=== PATIENT | male | born 1955 | race Two or more races ===

== ENCOUNTER 2023-02-15 06:51 | Outpatient (CLI) | payer OTHER | END 2023-02-15 06:56 | disposition home or self-care (01) | LOC: SONOGRAMA 06:51 | PROVIDERS: ATTEND Psychiatry & Neurology Child & Adolescent Psychiatry | DX: R74.01 Elevation of levels of liver transaminase levels (principal) ==

== ENCOUNTER 2023-04-06 06:57 | Outpatient (CLI) | payer OTHER | END 2023-04-06 06:59 | disposition home or self-care (01) | LOC: NUCLEAR 06:57 | DX: C25.9 Malignant neoplasm of pancreas, unspecified (principal) | CPT/HCPCS: 78815; A9552 ==

== ENCOUNTER 2023-04-13 13:48 | Outpatient (CLI) | payer OTHER ==
[2023-04-13 15:17] LABS: HEMATOCRIT 35.1 % (39.0-48.0); HEMOGLOBIN 11.9 g/dL (13-16.00); MEAN CORPUSCULAR HEMOGLOBIN 31.1 pg (27.00-32.0); MEAN CORPUSCULAR HGB CONC 33.8 g/dl (32.0-36.0); PLATELET COUNT 281 K/uL (150-450); RED BLOOD COUNT 3.81 M/uL (4.00-6.00); RED CELL DISTRIBUTION WIDTH 17.7 % (11.5-14.5)
[2023-04-13 15:41] LABS: ALBUMIN 3.6 gm/dL (3.4-5.0); BILIRUBIN TOTAL 11.51 mg/dL (0.3-1.2); BILIRUBIN,CONJUGATED 4.98 mg/dL (0.0-0.2); BILIRUBIN,UNCONJUGATED 6.53 mg/dL (0.0-0.6); CALCIUM 9.3 mg/dL (8.5-10.1); CREATININE SERUM 0.8 mg/dL (0.70-1.30); GFR 96.13; GLOBULINA 4.1 G/DL (2.4-3.5); POTASSIUM 4.53 mEq/L (3.5-5.1); TOTAL PROTEIN 7.7 gm/dL (6.4-8.2)
== END 2023-04-13 13:50 | disposition home or self-care (01) ==
LOC: LAB 13:48
PROVIDERS: ATTEND Internal Medicine
DX: C25.9 Malignant neoplasm of pancreas, unspecified (principal)